=== PATIENT | female | born 1960 ===

== ENCOUNTER 2017-05-04 09:54 | Inpatient (IN) | payer MEDICARE, MEDICAID ==
[2017-03-30 19:23] VITALS: BMI 33.0
[2017-05-04] MEDS ORDERED: Midazolam 2 MG/2 ML VIAL ONE (11:29)
[2017-05-04] MEDS ORDERED: Propofol 10 mg/ml Inj (20 ML) ONE (11:29)
[2017-05-04] MEDS ORDERED: Lactated Ringer's 1,000 ML IV ONE ×2 (11:35→13:20)
[2017-05-04] MEDS ORDERED: ceFAZolin IV 2 gm in Dextrose 2 GM/50 ML BAG IVPB ONE (11:35)
[2017-05-04] MEDS ORDERED: Neostigmine Methylsulfate 3mg/3ml Syringe IV ONE (13:15)
[2017-05-04] MEDS ORDERED: Dextrose 5%/0.45% NS 1,000 ML IV SCH (13:15)
[2017-05-04] MEDS: HYDROmorphone 0.5 mg/0.5 ml ISec IVP PRN ×3 (13:37→15:19)
[2017-05-04] MEDS: ceFAZolin IV 1 gm in Dextrose 1 GM/50 ML BAG IVPB SCH (17:25)
[2017-05-04] MEDS ORDERED: ceFAZolin IV 1 gm in Dextrose 1 GM/50 ML BAG IVPB SCH ×2 (17:30→20:00)
[2017-05-04] MEDS ORDERED: HYDROmorphone 0.5 mg/0.5 ml ISec ONE (17:36)
[2017-05-04] MEDS: Sodium Chloride 0.45% 1,000 ML IV SCH (18:00)
--- NOTE | 2017-05-04 20:45 | OP ---
PROCEDURE DATE: 05/04/2017 PREOPERATIVE DIAGNOSIS: Invasive adenocarcinoma of the left breast. POSTOPERATIVE DIAGNOSIS: Invasive adenocarcinoma of the left breast. PROCEDURES PERFORMED: 1. Left modified radical mastectomy. 2. Right simple mastectomy (prophylactic). 3. Repair of chest wall blood vessel. 4. Advancement flap closure greater than 30 sq cm. SURGEON: Yaron Pearl MD TYPE OF ANESTHESIA: General. ESTIMATED BLOOD LOSS: Less than 30 mL. POSTOPERATIVE CONDITION: Stable. INDICATIONS FOR SURGERY: This is a 56-year-old female who presented to my office, status post an ultrasound-guided biopsy of a left breast mass. It was positive for invasive carcinoma. The patient was offered treatment options ranging from lumpectomy with sentinel lymph node biopsy; however, she chose to have a left modified radical mastectomy as well as a prophylactic mastectomy of the right breast after an extensive discussion of both benefits and risks. She is scheduled today for bilateral mastectomy. GROSS FINDINGS: The right simple mastectomy was performed first. No abnormal tissue was encountered. In the left, the lesion was very superior and it was difficult getting in the mastectomy incision around it. We had to dissect above it and a thin layer of tissue was left in the skin in order to gain good margins on the tumor. There were no abnormal lymph nodes encountered. DESCRIPTION OF PROCEDURE: The patient was taken to the operating room, general anesthesia was administered, and both breasts were prepped and draped with the hands left open on an onboard. Attention was first turned to the right breast, where a standard elliptical mastectomy incision was made. Superior and inferior flaps were raised using the Bovie. The flaps were raised down to the pectoral fascia and then the breast was then taken off the pectoral fascia using the Bovie. Dissection was carried out laterally until the breast was completely removed. Bleeding was controlled using the Bovie. The lymph nodes were left intact. The wound was irrigated with copious amounts of sterile water and a simple closure was performed using subcutaneous Vicryl and skin clips. Attention was then turned to the left breast, where a larger and more elliptical incision was made in order to encompass the superior breast lesion. Superior and inferior flaps were raised and the superior flap was raised thinly because of the superficiality of the mass. The pectoralis fascia was encountered and then the breast was taken off the pectoralis muscle including the fascial layer. Bleeding was controlled using the Bovie and intercostal blood vessel, which was bleeding, was repaired with Prolene. Remaining bleeders were either ligated or controlled using the Bovie. Attention was then turned to the axilla, where all axillary nodes were removed below the axillary vein, lateral to the serratus anterior and medial to the latissimus dorsi muscle. The thoracodorsal artery and nerve were identified and preserved as was the long thoracic nerve. The wound was irrigated with sterile water. Tissue flaps had to be further raised and an advancement flap closure of approximately sq cm was performed by mobilizing and using multiple layers of Monocryl, subcuticular Monocryl, and skin clips. The patient tolerated the procedure well and returned to the recovery room in stable condition. Yaron Pearl MD
[2017-05-04] MEDS: Oxycodone/Acetaminophen 5/325 mg Tab PO PRN (22:01)
[2017-05-05] MEDS: ceFAZolin IV 1 gm in Dextrose 1 GM/50 ML BAG IVPB SCH ×3 (01:00→17:45)
[2017-05-05] MEDS: Oxycodone/Acetaminophen 5/325 mg Tab PO PRN ×4 (04:50→19:58)
[2017-05-05] MEDS: Sodium Chloride 0.45% 1,000 ML IV SCH ×3 (04:54→21:25)
[2017-05-05] MEDS: Albuterol HFA 90 mcg/actuation (8 g) IH PRN (06:45)
[2017-05-05 07:51] LABS: BASO % 0.2 % (0.0-2.0); EOS # 0.1 K/uL (0.0-0.7); EOS % 0.7 % (0.0-4.0); LYMPH # 2.5 K/uL (1.0-4.3); LYMPH % 34.8 % (20.0-40.0); MEAN PLATELET VOLUME 7.8 fL (7.2-11.7); MONO # 0.5 K/uL (0.0-0.8); MONO % 7.4 % (0.0-10.0); NRBC % 0.1 % (0.0-2.0); WHITE BLOOD COUNT 7.2 K/uL (4.8-10.8)
[2017-05-05 08:36] LABS: CHLORIDE 100 mmol/L (98-107)
[2017-05-05 08:37] LABS: POTASSIUM 3.6 mmol/L (3.6-5.2); SODIUM 131 mmol/L (132-148)
[2017-05-05 08:39] LABS: ALB/GLOB RATIO 1.4 (1.0-2.1); ALKALINE PHOSPHATASE 51 U/L (38-126); ALT/SGPT 39 U/L (9-52); AST/SGOT 20 U/L (14-36); BILIRUBIN,TOTAL 0.8 mg/dL (0.2-1.3); BLOOD UREA NITROGEN 10 mg/dL (7-17); CARBON DIOXIDE 25 mmol/L (22-30); GFR AFRICAN-AMERICAN > 60; TOTAL PROTEIN 4.8 g/dL (6.3-8.3)
[2017-05-05 08:40] LABS: CALCIUM 7.7 mg/dl (8.6-10.4); GLUCOSE,RANDOM 97 mg/dL (65-105)
--- NOTE | 2017-05-05 09:30 | CP.PCM.PN ---
Subjective - Date & Time of Evaluation Date of Evaluation: 05/05/17 Time of Evaluation: 09:30 - Subjective Subjective: Progress note. Attending: Dr. Reinoso This is a 56 yo female, originally from [place], with past medical hx of asthma/COPD , DM, HLD, PA, brain tumor, presenting after sx with Dr. Pearl. She reports she was recently diagnosed with breast cancer. She underwent right simple mastectomy, left modified radical mastectomy with left axillary node dissection yesterday. She has not had any chemo or radiation. Dr. Reinoso was consulted after surgery for medical management. Patient seen and examined at bedside. No acute distress. Reports some pain in her breast area. No fevers, chills, vomiting, diarrhea. Has not really been able to eat yet. PMH: Asthma/copd, DM, HLD, PA, brain tumor. PSH: cholecystectomy, hysterectomy, left knee repair, sx for brain tumor Allergies: NKDA FH: denies Social hx: Former smoker. No drinking. No drug use. Born in [place]. Lives alone. Objective - Vital Signs/Intake and Output Vital Signs (last 24 hours): Temp Pulse Resp BP Pulse Ox 98.6 F 74 20 168/59 H 98 05/05/17 08:12 05/05/17 08:12 05/05/17 08:12 05/05/17 08:12 05/05/17 08:12 Intake and Output: 05/05/17 05/05/17 06:59 18:59 Intake Total 1640 Output Total 175 Balance 1465 - Medications Medications: Current Medications Albuterol (Ventolin Hfa 90 Mcg/Actuation (8 G)) 2 puff IH RQ4 PRN PRN Reason: Shortness of Breath Last Admin: 05/05/17 06:45 Dose: 2 puff Alprazolam (Xanax) 2 mg PO TID PRN PRN Reason: Anxiety Docusate Sodium (Colace) 100 mg PO BID [facility] Last Admin: 05/04/17 20:05 Dose: Not Given Sodium Chloride (Sodium Chloride 0.45%) 1,000 mls @ 100 mls/hr IV .Q10H [facility] Last Admin: 05/05/17 04:54 Dose: 100 mls/hr Cefazolin Sodium/Dextrose (Ancef Iv 1 Gm Duplex) 1 gm in 50 mls @ 100 mls/hr IVPB Q8H [facility] Last Admin: 05/05/17 01:00 Dose: 100 mls/hr Metformin HCl (Glucophage) 500 mg PO BID [facility] Montelukast Sodium (Singulair) 10 mg PO HS [facility] Last Admin: 05/04/17 22:25 Dose: Not Given Ondansetron HCl (Zofran Inj) 4 mg IVP Q6 PRN PRN Reason: Nausea/Vomiting Last Admin: 05/04/17 18:44 Dose: 4 mg Oxycodone/Acetaminophen (Percocet 5/325 Mg Tab) 2 tab PO Q4H PRN PRN Reason: pain 1-8 Stop: 05/07/17 13:12 Last Admin: 05/05/17 09:15 Dose: 1 tab Pantoprazole Sodium (Protonix Inj) 40 mg IVP DAILY [facility] Rosuvastatin Calcium (Crestor) 10 mg PO HS [facility] Last Admin: 05/04/17 22:24 Dose: Not Given Zolpidem Tartrate (Ambien) 5 mg PO HS PRN PRN Reason: Insomnia - Labs Labs: 05/05/17 07:38 05/05/17 07:38 - Constitutional Appears: Non-toxic, No Acute Distress - Head Exam Head Exam: ATRAUMATIC, NORMAL INSPECTION, NORMOCEPHALIC - Eye Exam Eye Exam: EOMI - ENT Exam ENT Exam: Mucous Membranes Moist - Cardiovascular Exam Cardiovascular Exam: +S1, +S2 Additional comments: Bandage applied to B/L breast, clean, dry, intact, B/L drain with bloody drainage - GI/Abdominal Exam GI & Abdominal Exam: Soft, Normal Bowel Sounds. absent: Tenderness - Extremities Exam Extremities Exam: Full ROM, Normal Inspection - Neurological Exam Neurological Exam: Alert, Awake, Oriented x3 - Psychiatric Exam Psychiatric exam: Normal Affect, Normal Mood - Skin Skin Exam: Dry, Intact, Normal Color, Warm Assessment and Plan - Assessment and Plan (Free Text) Assessment: This is a 56 yo female with past medical hx of asthma/copd, DM, HLD, PA, brain tumor presenting with 1. S/P right simple mastectomy, left modified radical mastectomy, with left axillary node dissection. -admitted under Dr. Pearl. recs appreciated. -patient has invasive ductal carcinoma -monitor drain output -Dr. Tavarez. recs appreciated. -PT evaluation -zofran 4 mg q 6 PRN nausea -percocet 5/325 1 tab PO q 4 hrs PRN severe pain -continue 1/2 NS 100 cc/hr -continue cefazolin 1 g q 8 hrs IV 2. hx of asthma/COPD -continue albuterol -continue singulair 10 mg PO HS 3. Constipation -colace 100 mg BID 4. anxiety -xanax TID PRN anxiety 5. hx of DM -metformin 500 mg BID 6. hx of HLD -crestor 10 mg PO HS 7. insomnia -continue zolpidem 5 mg PO HS 8. GI/DVT -SCDs -protonix 40 mg IV daily discussed with Dr. Reinoso
--- NOTE | 2017-05-05 12:07 | CP.PCM.CON ---
History of Present Illness - History of Present Illness History of Present Illness: 56 year old female with a history of newly diagnosed invasive ductal carcinoma of the left breast (ER positive, CO negative, HER2 negative) s/p left modified radical mastectomy with axillary LN dissection and prophylactic right mastectomy. The patient reports to being found to have an abnormal mammogram which prompted a biopsy and led to her breast cancer diagnosis. She reports to some surgical related pain but notes her pain medication is adequate. Past medical history: None Past surgical history: left modified radical mastectomy with axillary LN dissection and prophylactic right mastectomy Family history: Daughter had skin cancer Social history: Smokes 1ppd x 30years, denies alcohol, and illicit drug use. Allergies: NKDA Review of systems: All remaining review of systems including HEENT, cardiovascular, respiratory, gastrointestinal, genitourinary, musculoskeletal, dermatologic, neurologic, and psychiatric are negative unless mentioned in the HPI. Past Patient History - Infectious Disease Hx of Infectious Diseases: None - Tetanus Immunizations Tetanus Immunization: Unknown - Past Social History Smoking Status: Former Smoker - CARDIAC Hx Cardiac Disorders: Yes Hx Congestive Heart Failure: Yes Hx Heart Attack: Yes (2 weeks ago referred to corporate strategy associate follow up) Hx Hypercholesterolemia: Yes Hx Hypertension: Yes - PULMONARY Hx Respiratory Disorders: Yes Hx Asthma: Yes Hx Bronchitis: Yes Hx Emphysema: Yes Hx Sleep Apnea: Yes (CPAP) - NEUROLOGICAL Hx Neurological Disorder: Yes (brain tumor) Hx Dementia: Yes Hx Dizziness: Yes Other/Comment: "SMALL BRAIN TUMOR-NO SURGERY" - HEENT Hx HEENT Problems: No - RENAL Hx Chronic Kidney Disease: No Hx Renal Failure: Yes - ENDOCRINE/METABOLIC Hx Endocrine Disorders: Yes Hx Diabetes Mellitus Type 2: Yes - HEMATOLOGICAL/ONCOLOGICAL Hx Blood Disorders: No Hx Cancer: Yes (LEFT BREAST) Hx Chemotherapy: No - INTEGUMENTARY Hx Dermatological Problems: No Other/Comment: HX: LEFT BREAST CANCER - MUSCULOSKELETAL/RHEUMATOLOGICAL Hx Musculoskeletal Disorders: Yes (TORN MENISCUS SX) Hx Back Pain: Yes Hx Falls: No Hx Herniated Disk: Yes (BULGING DISC L4L5) Hx Osteoarthritis: Yes Hx Unsteady Gait: Yes (CANE WALKER) - GASTROINTESTINAL Hx Gastrointestinal Disorders: Yes (GASTRITIS) Hx Gastritis: Yes HX Swallowing Problems: Yes - GENITOURINARY/GYNECOLOGICAL Hx Genitourinary Disorders: No - PSYCHIATRIC Hx Psychophysiologic Disorder: Yes Hx Anxiety: Yes Hx Depression: Yes Hx Substance Use: No - SURGICAL HISTORY Hx Surgeries: Yes Hx Arthroscopy: Yes (ARTHROSCOPIC SURGERY LEFT KNEE) Hx Cholecystectomy: Yes Hx Hysterectomy: Yes Hx Orthopedic Surgery: Yes (left knee) Other/Comment: bladder - ANESTHESIA Hx Anesthesia: Yes Hx Anesthesia Reactions: No Hx Malignant Hyperthermia: No Has any member of the family had a problem w/ anesthesia?: No Meds Allergies/Adverse Reactions: Allergies Allergy/AdvReac Type Severity Reaction Status Date / Time FISH Allergy RASH Verified 02/22/16 21:23 strawberry Allergy RASH Verified 02/22/16 21:23 cranberry AdvReac ITCHING Verified 02/22/16 21:23 peanut AdvReac RASH Verified 02/22/16 21:23 - Medications Medications: Current Medications Albuterol (Ventolin Hfa 90 Mcg/Actuation (8 G)) 2 puff IH RQ4 PRN PRN Reason: Shortness of Breath Last Admin: 05/05/17 06:45 Dose: 2 puff Alprazolam (Xanax) 2 mg PO TID PRN PRN Reason: Anxiety Docusate Sodium (Colace) 100 mg PO BID [facility] Last Admin: 05/05/17 09:25 Dose: 100 mg Sodium Chloride (Sodium Chloride 0.45%) 1,000 mls @ 100 mls/hr IV .Q10H [facility] Last Admin: 05/05/17 04:54 Dose: 100 mls/hr Cefazolin Sodium/Dextrose (Ancef Iv 1 Gm Duplex) 1 gm in 50 mls @ 100 mls/hr IVPB Q8H [facility] Last Admin: 05/05/17 09:38 Dose: 100 mls/hr Metformin HCl (Glucophage) 500 mg PO BID [facility] Last Admin: 05/05/17 09:25 Dose: 500 mg Montelukast Sodium (Singulair) 10 mg PO HS [facility] Last Admin: 05/04/17 22:25 Dose: Not Given Ondansetron HCl (Zofran Inj) 4 mg IVP Q6 PRN PRN Reason: Nausea/Vomiting Last Admin: 05/05/17 09:25 Dose: 4 mg Oxycodone/Acetaminophen (Percocet 5/325 Mg Tab) 2 tab PO Q4H PRN PRN Reason: pain 1-8 Stop: 05/07/17 13:12 Last Admin: 05/05/17 09:15 Dose: 1 tab Pantoprazole Sodium (Protonix Inj) 40 mg IVP DAILY [facility] Last Admin: 05/05/17 09:25 Dose: 40 mg Rosuvastatin Calcium (Crestor) 10 mg PO HS [facility] Last Admin: 05/04/17 22:24 Dose: Not Given Zolpidem Tartrate (Ambien) 5 mg PO HS PRN PRN Reason: Insomnia Physical Exam - Head Exam Head Exam: ATRAUMATIC - Eye Exam Eye Exam: Normal appearance - ENT Exam ENT Exam: Mucous Membranes Dry - Respiratory Exam Respiratory Exam: NORMAL BREATHING PATTERN - Cardiovascular Exam Cardiovascular Exam: +S1, +S2 - GI/Abdominal Exam GI & Abdominal Exam: Normal Bowel Sounds - Extremities Exam Extremities exam: Positive for: normal inspection - Neurological Exam Neurological exam: Oriented x3 - Psychiatric Exam Psychiatric exam: Normal Affect, Normal Mood - Skin Skin Exam: Warm Results - Vital Signs Recent Vital Signs: Last Vital Signs Temp 98.6 F 05/05/17 08:12 Pulse 74 05/05/17 08:12 Resp 20 05/05/17 08:12 BP 168/59 H 05/05/17 08:12 Pulse Ox 98 05/05/17 08:12 - Labs Result Diagrams: 05/05/17 07:38 05/05/17 07:38 Labs: Laboratory Results - last 24 hr 05/04/17 05/05/17 05/05/17 21:35 06:36 07:38 WBC 7.2 RBC 3.08 L Hgb 9.2 L D Hct 28.0 L MCV 91.0 MCH 30.0 MCHC 33.0 RDW 14.0 Plt Count 282 MPV 7.8 Neut % (Auto) 56.9 Lymph % (Auto) 34.8 [place] % (Auto) 7.4 Eos % (Auto) 0.7 Baso % (Auto) 0.2 Neut # 4.1 Lymph # 2.5 [place] # 0.5 Eos # 0.1 Baso # 0.0 Sodium Potassium Chloride Carbon Dioxide Anion Gap BUN Creatinine Est GFR ( Amer) Est GFR (Non-Af Amer) POC Glucose (mg/dL) 143 H 114 H Random Glucose Calcium Total Bilirubin AST ALT Alkaline Phosphatase Total Protein Albumin Globulin Albumin/Globulin Ratio 05/05/17 07:38 WBC RBC Hgb Hct MCV MCH MCHC RDW Plt Count MPV Neut % (Auto) Lymph % (Auto) [place] % (Auto) Eos % (Auto) Baso % (Auto) Neut # Lymph # [place] # Eos # Baso # Sodium 131 L Potassium 3.6 Chloride 100 Carbon Dioxide 25 Anion Gap 10 BUN 10 Creatinine 0.7 Est GFR ( Amer) > 60 Est GFR (Non-Af Amer) > 60 POC Glucose (mg/dL) Random Glucose 97 Calcium 7.7 L Total Bilirubin 0.8 AST 20 ALT 39 Alkaline Phosphatase 51 Total Protein 4.8 L Albumin 2.8 L D Globulin 2.0 L Albumin/Globulin Ratio 1.4 Assessment & Plan (1) Breast cancer Assessment and Plan: will await pathology report for further treatment recommendations Status: Acute (2) Anemia Assessment and Plan: surgical blood loss Thank you for this interesting consult. Status: Acute
--- NOTE | 2017-05-05 19:22 | PN ---
DATE: 05/05/2017 SUBJECTIVE: Postoperative day #1. The patient is resting comfortably in bed. She is status post bilateral mastectomy yesterday for adenocarcinoma of the left breast as well as postoperative drainage under sterile technique of the left chest wall hematoma in the recovery room. Today, she is resting comfortably and complains only of minimal incision pain. She is tolerating a regular diet. PHYSICAL EXAMINATION: VITAL SIGNS: Her temperature is 98.6, pulse rate is 74, BP is 168/59. CHEST: Both of her chest wall incisions are clean and dry, and there is no evidence of subcutaneous collections beneath the mastectomy flaps. With regard to her drains, the two drains in her left chest are draining 30 mL and 40 mL respectively overnight and the right chest drain is draining 20 mL overnight. It is all serosanguineous material. LABORATORY DATA: Her hemoglobin is 9.2 and the remainder of her labs are within normal limits. IMPRESSION AND PLAN: My impression is she is doing well on one day status post bilateral mastectomy. She will be mobilized, continued to be given a regular diet, and as she improves, we will make evaluation for discharge. Yaron Pearl MD
[2017-05-06] MEDS: ceFAZolin IV 1 gm in Dextrose 1 GM/50 ML BAG IVPB SCH ×3 (01:23→18:00)
[2017-05-06] MEDS: Oxycodone/Acetaminophen 5/325 mg Tab PO PRN ×3 (01:59→14:05)
[2017-05-06] MEDS: Albuterol HFA 90 mcg/actuation (8 g) IH PRN ×2 (07:38→14:14)
[2017-05-06 08:19] LABS: BASO % 0.3 % (0.0-2.0); EOS # 0.1 K/uL (0.0-0.7); EOS % 1.2 % (0.0-4.0); HEMATOCRIT 27.9 % (34.0-47.0); LYMPH # 2.7 K/uL (1.0-4.3); LYMPH % 39.3 % (20.0-40.0); MEAN CELL VOLUME 90.6 fL (81.0-99.0); MEAN CORPUSCULAR HEMOGLOBIN 30.1 pg (27.0-31.0); MEAN CORPUSCULAR HGB CONC 33.2 g/dL (33.0-37.0); MEAN PLATELET VOLUME 7.6 fL (7.2-11.7); MONO # 0.5 K/uL (0.0-0.8); RED CELL DISTRIBUTION WIDTH 13.7 % (11.5-14.5); WHITE BLOOD COUNT 6.8 K/uL (4.8-10.8)
[2017-05-06 08:26] LABS: CHLORIDE 99 mmol/L (98-107)
[2017-05-06 08:27] LABS: POTASSIUM 3.4 mmol/L (3.6-5.2); SODIUM 133 mmol/L (132-148)
[2017-05-06 08:29] LABS: ALB/GLOB RATIO 1.4 (1.0-2.1); ALKALINE PHOSPHATASE 51 U/L (38-126); AST/SGOT 17 U/L (14-36); BILIRUBIN,TOTAL 0.7 mg/dL (0.2-1.3); BLOOD UREA NITROGEN 6 mg/dL (7-17); CARBON DIOXIDE 28 mmol/L (22-30); GFR AFRICAN-AMERICAN > 60; GLUCOSE,RANDOM 101 mg/dL (65-105)
[2017-05-06 08:30] LABS: ALT/SGPT 32 U/L (9-52); CALCIUM 8.1 mg/dl (8.6-10.4); MAGNESIUM 1.6 mg/dL (1.6-2.3); PHOSPHOROUS 2.6 mg/dL (2.5-4.5)
[2017-05-06] MEDS: Potassium Chloride 20 mEq ER Tab PO SCH (12:37)
[2017-05-06] MEDS: Sodium Chloride 0.45% 1,000 ML IV SCH (14:07)
[2017-05-07] MEDS: ceFAZolin IV 1 gm in Dextrose 1 GM/50 ML BAG IVPB SCH ×3 (01:24→17:28)
[2017-05-07 07:47] LABS: BASO % 0.2 % (0.0-2.0); EOS # 0.1 K/uL (0.0-0.7); HEMATOCRIT 28.8 % (34.0-47.0); LYMPH # 1.9 K/uL (1.0-4.3); LYMPH % 24.5 % (20.0-40.0); MEAN CELL VOLUME 89.3 fL (81.0-99.0); MEAN CORPUSCULAR HEMOGLOBIN 30.2 pg (27.0-31.0); MEAN CORPUSCULAR HGB CONC 33.8 g/dL (33.0-37.0); MEAN PLATELET VOLUME 7.4 fL (7.2-11.7); MONO # 0.6 K/uL (0.0-0.8); MONO % 7.3 % (0.0-10.0); RED CELL DISTRIBUTION WIDTH 13.6 % (11.5-14.5); WHITE BLOOD COUNT 7.9 K/uL (4.8-10.8)
[2017-05-07 07:52] LABS: CHLORIDE 98 mmol/L (98-107)
[2017-05-07 07:53] LABS: POTASSIUM 3.7 mmol/L (3.6-5.2); SODIUM 132 mmol/L (132-148)
[2017-05-07 07:55] LABS: ALB/GLOB RATIO 1.4 (1.0-2.1); ALKALINE PHOSPHATASE 55 U/L (38-126); AST/SGOT 19 U/L (14-36); BILIRUBIN,TOTAL 0.7 mg/dL (0.2-1.3); BLOOD UREA NITROGEN 6 mg/dL (7-17); CARBON DIOXIDE 28 mmol/L (22-30); GFR AFRICAN-AMERICAN > 60; GLUCOSE,RANDOM 102 mg/dL (65-105); TOTAL PROTEIN 5.5 g/dL (6.3-8.3)
[2017-05-07 07:56] LABS: ALT/SGPT 33 U/L (9-52); CALCIUM 8.6 mg/dl (8.6-10.4)
[2017-05-07] MEDS: Potassium Chloride 20 mEq ER Tab PO SCH (10:05)
--- NOTE | 2017-05-07 19:56 | CP.PCM.PN ---
Subjective - Date & Time of Evaluation Date of Evaluation: 05/07/17 Time of Evaluation: 18:45 - Subjective Subjective: Has pain at left knee and calf. Awaiting final pathology before determining if patient would benefit from adjuvant chemotherapy and portacath placement Objective - Vital Signs/Intake and Output Vital Signs (last 24 hours): Temp Pulse Resp BP Pulse Ox 98 F 82 20 155/94 H 98 05/07/17 15:30 05/07/17 15:30 05/07/17 15:30 05/07/17 15:30 05/07/17 15:30 Intake and Output: 05/07/17 05/08/17 18:59 06:59 Output Total 30 Balance -30 - Medications Medications: Current Medications Albuterol (Ventolin Hfa 90 Mcg/Actuation (8 G)) 2 puff IH RQ4 PRN PRN Reason: Shortness of Breath Last Admin: 05/06/17 14:14 Dose: 1 puff Alprazolam (Xanax) 2 mg PO TID PRN PRN Reason: Anxiety Last Admin: 05/07/17 04:43 Dose: 2 mg Docusate Sodium (Colace) 100 mg PO BID [facility] Last Admin: 05/07/17 17:28 Dose: 100 mg Cefazolin Sodium/Dextrose (Ancef Iv 1 Gm Duplex) 1 gm in 50 mls @ 100 mls/hr IVPB Q8H [facility] Last Admin: 05/07/17 17:28 Dose: 100 mls/hr Metformin HCl (Glucophage) 500 mg PO BID [facility] Last Admin: 05/07/17 17:28 Dose: 500 mg Montelukast Sodium (Singulair) 10 mg PO HS [facility] Last Admin: 05/06/17 22:23 Dose: 10 mg Ondansetron HCl (Zofran Inj) 4 mg IVP Q6 PRN PRN Reason: Nausea/Vomiting Last Admin: 05/06/17 16:10 Dose: 4 mg Pantoprazole Sodium (Protonix Inj) 40 mg IVP DAILY [facility] Last Admin: 05/07/17 10:07 Dose: 40 mg Potassium Chloride (K-Dur 20 Meq Er Tab) 20 meq PO DAILY [facility] Stop: 05/08/17 10:01 Last Admin: 05/07/17 10:05 Dose: 20 meq Rosuvastatin Calcium (Crestor) 10 mg PO HS [facility] Last Admin: 05/06/17 22:23 Dose: 10 mg Tramadol HCl (Ultram) 50 mg PO Q6H PRN PRN Reason: Pain, moderate (4-7) Last Admin: 05/07/17 10:18 Dose: 50 mg Zolpidem Tartrate (Ambien) 5 mg PO HS PRN PRN Reason: Insomnia Last Admin: 05/05/17 21:31 Dose: 5 mg - Labs Labs: 05/07/17 07:30 05/07/17 07:30 - Head Exam Head Exam: ATRAUMATIC - Eye Exam Eye Exam: Normal appearance - ENT Exam ENT Exam: Mucous Membranes Dry - Respiratory Exam Respiratory Exam: NORMAL BREATHING PATTERN - Cardiovascular Exam Cardiovascular Exam: +S1, +S2 - GI/Abdominal Exam GI & Abdominal Exam: Normal Bowel Sounds - Extremities Exam Extremities Exam: Normal Inspection Assessment and Plan (1) Breast cancer Assessment & Plan: s/p modified mastectomy and LN dissection Awaiting final pathology before determining if patient would benefit from adjuvant chemotherapy and portacath placement Status: Acute (2) Anemia Assessment & Plan: surgical blood loss Status: Acute
[2017-05-08] MEDS: ceFAZolin IV 1 gm in Dextrose 1 GM/50 ML BAG IVPB SCH ×3 (00:33→16:30)
[2017-05-08] MEDS: Albuterol HFA 90 mcg/actuation (8 g) IH PRN (08:20)
[2017-05-08] MEDS: Potassium Chloride 20 mEq ER Tab PO SCH (10:21)
--- NOTE | 2017-05-08 13:40 | CP.PCM.PN ---
Subjective - Date & Time of Evaluation Date of Evaluation: 05/08/17 Time of Evaluation: 13:30 - Subjective Subjective: Progress note. Attending: Dr. Reinoso Pt seen and examined at bedside. No acute distress. No events overnight. No fevers, chills, vomiting, diarrhea. Pt has some pain in legs. Objective - Vital Signs/Intake and Output Vital Signs (last 24 hours): Temp Pulse Resp BP Pulse Ox 98.0 F 84 18 134/66 97 05/08/17 07:25 05/08/17 07:25 05/08/17 07:25 05/08/17 07:25 05/08/17 07:25 Intake and Output: 05/08/17 05/08/17 06:59 18:59 Intake Total 250 Output Total 78 Balance 172 - Medications Medications: Current Medications Albuterol (Ventolin Hfa 90 Mcg/Actuation (8 G)) 2 puff IH RQ4 PRN PRN Reason: Shortness of Breath Last Admin: 05/08/17 08:20 Dose: 2 puff Alprazolam (Xanax) 2 mg PO TID PRN PRN Reason: Anxiety Last Admin: 05/08/17 00:07 Dose: 2 mg Docusate Sodium (Colace) 100 mg PO BID [facility] Last Admin: 05/08/17 10:20 Dose: Not Given Cefazolin Sodium/Dextrose (Ancef Iv 1 Gm Duplex) 1 gm in 50 mls @ 100 mls/hr IVPB Q8H [facility] Last Admin: 05/08/17 08:29 Dose: 100 mls/hr Metformin HCl (Glucophage) 500 mg PO BID [facility] Last Admin: 05/08/17 10:21 Dose: Not Given Montelukast Sodium (Singulair) 10 mg PO HS [facility] Last Admin: 05/07/17 21:04 Dose: 10 mg Ondansetron HCl (Zofran Inj) 4 mg IVP Q6 PRN PRN Reason: Nausea/Vomiting Last Admin: 05/06/17 16:10 Dose: 4 mg Pantoprazole Sodium (Protonix Inj) 40 mg IVP DAILY [facility] Last Admin: 05/08/17 10:21 Dose: Not Given Rosuvastatin Calcium (Crestor) 10 mg PO HS [facility] Last Admin: 05/07/17 21:04 Dose: 10 mg Tramadol HCl (Ultram) 50 mg PO Q6H PRN PRN Reason: Pain, moderate (4-7) Last Admin: 05/08/17 00:05 Dose: 50 mg Zolpidem Tartrate (Ambien) 5 mg PO HS PRN PRN Reason: Insomnia Last Admin: 05/05/17 21:31 Dose: 5 mg - Labs Labs: 05/07/17 07:30 05/07/17 07:30 - Constitutional Appears: Non-toxic, No Acute Distress - Head Exam Head Exam: ATRAUMATIC, NORMAL INSPECTION, NORMOCEPHALIC - Eye Exam Eye Exam: EOMI - ENT Exam ENT Exam: Mucous Membranes Moist - Neck Exam Neck Exam: Full ROM, Normal Inspection - Respiratory Exam Respiratory Exam: NORMAL BREATHING PATTERN. absent: Respiratory Distress - Cardiovascular Exam Cardiovascular Exam: +S1, +S2 - GI/Abdominal Exam GI & Abdominal Exam: Soft, Normal Bowel Sounds. absent: Tenderness - Extremities Exam Extremities Exam: Full ROM, Normal Inspection - Back Exam Back Exam: NORMAL INSPECTION - Neurological Exam Neurological Exam: Alert, Awake, Oriented x3 - Psychiatric Exam Psychiatric exam: Normal Affect, Normal Mood - Skin Skin Exam: Dry, Intact, Normal Color, Warm - Additional Findings Additional findings: Surgical bandage clean, dry, intact. Assessment and Plan - Assessment and Plan (Free Text) Assessment: This is a 56 yo female with past medical hx of asthma/copd, DM, HLD, [place], brain tumor presenting with 1. S/P right simple mastectomy, left modified radical mastectomy, with left axillary node dissection. -admitted under Dr. Pearl. recs appreciated. -patient has invasive ductal carcinoma -monitor drain output -Dr. Tavarez. recs appreciated. -PT evaluation>>> recommends TCU -zofran 4 mg q 6 PRN nausea -percocet 5/325 1 tab PO q 4 hrs PRN severe pain -continue cefazolin 1 g q 8 hrs IV -awaiting final pathology to determine if patient needs adjuvant chemotherapy and port placement 2. hx of asthma/COPD -continue albuterol -continue singulair 10 mg PO HS 3. Constipation -colace 100 mg BID 4. anxiety -xanax TID PRN anxiety 5. hx of DM -metformin 500 mg BID 6. hx of HLD -crestor 10 mg PO HS 7. insomnia -continue zolpidem 5 mg PO HS 8. GI/DVT -SCDs -protonix 40 mg IV daily -will add naproxen for pain discussed with Dr. Reinoso
[2017-05-08 16:09] VITALS: RESP 20
[2017-05-09] MEDS: ceFAZolin IV 1 gm in Dextrose 1 GM/50 ML BAG IVPB SCH ×3 (01:34→16:29)
[2017-05-09 07:46] LABS: BASO % 0.3 % (0.0-2.0); EOS # 0.2 K/uL (0.0-0.7); EOS % 2.4 % (0.0-4.0); HEMATOCRIT 28.7 % (34.0-47.0); LYMPH % 27.7 % (20.0-40.0); MEAN CELL VOLUME 89.7 fL (81.0-99.0); MEAN CORPUSCULAR HEMOGLOBIN 29.9 pg (27.0-31.0); MEAN CORPUSCULAR HGB CONC 33.3 g/dL (33.0-37.0); MEAN PLATELET VOLUME 7.6 fL (7.2-11.7); MONO # 0.6 K/uL (0.0-0.8); MONO % 7.9 % (0.0-10.0); NRBC % 0.1 % (0.0-2.0); RED CELL DISTRIBUTION WIDTH 13.6 % (11.5-14.5); WHITE BLOOD COUNT 7.2 K/uL (4.8-10.8)
[2017-05-09] MEDS: Albuterol HFA 90 mcg/actuation (8 g) IH PRN (07:52)
[2017-05-09 07:53] LABS: CHLORIDE 96 mmol/L (98-107)
[2017-05-09 07:54] LABS: POTASSIUM 3.4 mmol/L (3.6-5.2); SODIUM 131 mmol/L (132-148)
[2017-05-09 07:56] LABS: BILIRUBIN,TOTAL 0.8 mg/dL (0.2-1.3); GFR AFRICAN-AMERICAN > 60
[2017-05-09 07:57] LABS: ALB/GLOB RATIO 1.4 (1.0-2.1); ALKALINE PHOSPHATASE 58 U/L (38-126); ALT/SGPT 24 U/L (9-52); AST/SGOT 15 U/L (14-36); BLOOD UREA NITROGEN 10 mg/dL (7-17); CALCIUM 8.7 mg/dl (8.6-10.4); CARBON DIOXIDE 29 mmol/L (22-30); GLUCOSE,RANDOM 120 mg/dL (65-105); MAGNESIUM 1.5 mg/dL (1.6-2.3); PHOSPHOROUS 3.4 mg/dL (2.5-4.5); TOTAL PROTEIN 5.7 g/dL (6.3-8.3)
--- NOTE | 2017-05-09 10:35 | CON ---
DATE: 05/05/2017 HISTORY OF PRESENT ILLNESS: The patient is a 56-year-old female went to the hospital for mastectomy for breast cancer, history of COPD, arthritis, back pain, and anxiety. PHYSICAL EXAMINATION: GENERAL: The patient is awake, alert, and oriented. VITAL SIGNS: Temperature 98 and pulse 90. HEENT: Within normal limits. NECK: Supple. CHEST: Symmetrical. HEART: Regular. ABDOMEN: Soft. EXTREMITIES: No edema. The patient with breast cancer, chronic obstructive pulmonary disease, stable bronchodilator, follow up. Keli Reinoso MD
[2017-05-09 14:22] LABS: BASO % 0.4 % (0.0-2.0); EOS # 0.2 K/uL (0.0-0.7); EOS % 2.1 % (0.0-4.0); HEMATOCRIT 31.5 % (34.0-47.0); LYMPH # 2.1 K/uL (1.0-4.3); LYMPH % 25.3 % (20.0-40.0); MEAN CELL VOLUME 90.2 fL (81.0-99.0); MEAN CORPUSCULAR HEMOGLOBIN 30.1 pg (27.0-31.0); MEAN CORPUSCULAR HGB CONC 33.4 g/dL (33.0-37.0); MEAN PLATELET VOLUME 7.7 fL (7.2-11.7); MONO # 0.6 K/uL (0.0-0.8); MONO % 6.7 % (0.0-10.0); NRBC % 0.1 % (0.0-2.0); RED CELL DISTRIBUTION WIDTH 13.7 % (11.5-14.5); WHITE BLOOD COUNT 8.3 K/uL (4.8-10.8)
[2017-05-09 14:59] LABS: ALB/GLOB RATIO 1.4 (1.0-2.1); ALKALINE PHOSPHATASE 59 U/L (38-126); ALT/SGPT 29 U/L (9-52); AST/SGOT 19 U/L (14-36); BILIRUBIN,TOTAL 0.8 mg/dL (0.2-1.3); BLOOD UREA NITROGEN 10 mg/dL (7-17); CALCIUM 8.7 mg/dl (8.6-10.4); CARBON DIOXIDE 29 mmol/L (22-30); CHLORIDE 96 mmol/L (98-107); GFR AFRICAN-AMERICAN > 60; GLUCOSE,RANDOM 122 mg/dL (65-105); MAGNESIUM 1.5 mg/dL (1.6-2.3); PHOSPHOROUS 3.6 mg/dL (2.5-4.5); POTASSIUM 3.6 mmol/L (3.6-5.2); SODIUM 132 mmol/L (132-148); TOTAL PROTEIN 6.3 g/dL (6.3-8.3)
[2017-05-09 16:07] VITALS: BP 158/71; PULSE 91; TEMP 98.3; O2SAT 96
== END 2017-05-09 18:00 | disposition home or self-care (01) | DRG 577 ==
LOC: C.9S 09:54 → EDSTATUS 12:00 → C.6T 16:57
PROVIDERS: ADMIT Surgery; ATTEND Surgery
PROC: 0HX5XZZ Transfer Chest Skin, External Approach (ICD-10-PCS; 2017-05-04)
PROC: 0HTT0ZZ Resection of Right Breast, Open Approach (ICD-10-PCS; 2017-05-04)
PROC: 07B60ZX Excision of Left Axillary Lymphatic, Open Approach, Diagnostic (ICD-10-PCS; 2017-05-04)
PROC: 0H9V00Z Drainage of Bilateral Breast with Drainage Device, Open Approach (ICD-10-PCS; 2017-05-04)
PROC: 05QY0ZZ Repair Upper Vein, Open Approach (ICD-10-PCS; 2017-05-04)
PROC: 0HTU0ZZ Resection of Left Breast, Open Approach (ICD-10-PCS; principal; 2017-05-04 12:00)
DX: C50.412 Malignant neoplasm of upper-outer quadrant of left female breast (principal); D62 Acute posthemorrhagic anemia; I11.0 Hypertensive heart disease with heart failure; I50.9 Heart failure, unspecified; C77.3 Secondary and unspecified malignant neoplasm of axilla and upper limb lymph nodes; L76.32 Postprocedural hematoma of skin and subcutaneous tissue following other procedure; D49.6 Neoplasm of unspecified behavior of brain; J43.9 Emphysema, unspecified; Z17.0 Estrogen receptor positive status [ER+]; Z87.891 Personal history of nicotine dependence; E78.00 Pure hypercholesterolemia, unspecified; G47.30 Sleep apnea, unspecified; Z40.01 Encounter for prophylactic removal of breast; E11.9 Type 2 diabetes mellitus without complications; R26.81 Unsteadiness on feet; Z90.49 Acquired absence of other specified parts of digestive tract; G47.00 Insomnia, unspecified; F41.9 Anxiety disorder, unspecified; M54.9 Dorsalgia, unspecified; M19.90 Unspecified osteoarthritis, unspecified site; K59.00 Constipation, unspecified; Y83.8 Other surgical procedures as the cause of abnormal reaction of the patient, or of later complication, without mention of misadventure at the time of the procedure